=== PATIENT | female | born 1985 | race Two or more races ===

== ENCOUNTER 2022-07-06 13:50 | Emergency (ER) | payer MEDICAID, OTHER ==
[~2022-07-06] VITALS: Ht 152.4 cm; Wt 94.4 kg
[2022-07-06 18:36] VITALS: BP 137/84
[2022-07-06] MEDS ORDERED: AZITTAB PO (19:18)
[2022-07-06] MEDS ORDERED: PROM1SOL4 PO (19:18)
[2022-07-06] MEDS ORDERED: ALBU108A5 IN (19:18)
== END 2022-07-06 19:20 | disposition home or self-care (01) ==
LOC: ER 13:50
DX: J06.9 Acute upper respiratory infection, unspecified (principal); Z20.822 Contact with and (suspected) exposure to COVID-19
CPT/HCPCS: 36415; 71045; 87426; 87804

== ENCOUNTER 2022-08-05 09:35 | Emergency (ER) | payer MEDICAID ==
[~2022-08-05] VITALS: Ht 165.1 cm; Wt 91.1 kg
[~2022-08-05 09:35] MED LIST: ALBU108A5 IN; AZITTAB PO; PROM1SOL4 PO
[2022-08-05 10:29] VITALS: BP 139/82
[2022-08-05] MEDS ORDERED: ACET1CAP14 PO (10:30)
[2022-08-05] MEDS ORDERED: BENZ1LOZ3 MT (10:30)
[2022-08-05] MEDS ORDERED: PENI500T2 PO (11:00)
[2022-08-05] MEDS ORDERED: ACETAMINOPHEN 500 MG TAB PO ONE (11:15)
== END 2022-08-05 11:08 | disposition home or self-care (01) ==
LOC: ER 09:35
DX: J02.9 Acute pharyngitis, unspecified (principal); Z98.51 Tubal ligation status; Z88.1 Allergy status to other antibiotic agents
CPT/HCPCS: 36415; 87070; 87880

== ENCOUNTER 2022-09-21 05:13 | Emergency (ER) | payer MEDICAID ==
[~2022-09-21] VITALS: Ht 165.1 cm; Wt 93.2 kg
[~2022-09-21 05:13] MED LIST changes: +ACET1CAP14 PO; +BENZ1LOZ3 MT; +PENI500T2 PO
[2022-09-21 07:33] VITALS: BP 160/77
[2022-09-21] MEDS ORDERED: IBUP600T28 PO (07:59)
[2022-09-21] MEDS ORDERED: KETOROLAC TROMETH 30 MG/ML 1ML VIAL IM ONE (08:00)
[2022-09-21] MEDS ORDERED: CYCL-839 PO (08:06)
== END 2022-09-21 08:10 | disposition home or self-care (01) ==
LOC: ER 05:13
DX: S93.602A Unspecified sprain of left foot, initial encounter (principal); Z88.0 Allergy status to penicillin; Z88.6 Allergy status to analgesic agent; Z98.51 Tubal ligation status; X58.XXXA Exposure to other specified factors, initial encounter; Y93.89 Activity, other specified; Y92.89 Other specified places as the place of occurrence of the external cause; Y99.8 Other external cause status
CPT/HCPCS: 73630; 96372; 99283; J1885